=== PATIENT | male | born 1990 | race Caucasian/White ===

== ENCOUNTER 2016-11-16 19:32 | Inpatient (IN) | payer BC, OTHER ==
[~2016-11-16] VITALS: Ht 188 cm; Wt 94.8 kg
[~2016-11-16 19:32] MED LIST: PROPECIA
--- NOTE | 2016-11-16 20:05 | NUR ---
Dr. Ayala at bedside for MSE
[2016-11-16] MEDS ORDERED: NITROGLYCERIN OINT 1 GM PACKET TP ONE ×2 (20:30→20:45)
[2016-11-16] MEDS ORDERED: ASPIRIN 81 MG TAB.CHEW PO ONE (20:30)
[2016-11-16 20:37] LABS: BASOPHILS # (AUTO) 0.1 K/uL (0.0-8.0); BASOPHILS % (AUTO) 0.8 % (0.0-2.0); EOSINOPHILS # (AUTO) 0.5 K/uL (0.0-0.7); EOSINOPHILS % (AUTO) 4.6 % (0.0-7.0); HEMATOCRIT 48.7 % (40-50); HEMOGLOBIN 16.1 G/DL (14.0-18.0); LYMPHOCYTES # (AUTO) 2.7 K/UL (0.8-4.8); LYMPHOCYTES % (AUTO) 24.8 % (20.5-51.5); MEAN CORPUSCULAR HEMOGLOBIN 28.6 UUG (27.0-31.0); MEAN CORPUSCULAR HGB CONC 33 g/dL (32.0-37.0); MEAN CORPUSCULAR VOLUME 86.1 FL (82.0-92.0); MONOCYTES % (AUTO) 9.3 % (0.0-11.0); NEUTROPHILS # (AUTO) 6.5 K/UL (1.8-8.9); NEUTROPHILS % (AUTO) 60.5 % (38.5-71.5); PLATELET COUNT (AUTO) 226 K/UL (150-450); RED BLOOD CELL COUNT(AUTO) 5.65 MIL/UL (4.7-6.1); WHITE BLOOD COUNT (AUTO) 10.8 K/UL (4.0-11.2)
[2016-11-16] MEDS ORDERED: ASPIRIN 81 MG TAB.CHEW ONE (20:45)
--- NOTE | 2016-11-16 20:50 | NUR ---
Nitro paste held due to blood pressure and pt now chest pain free.
[2016-11-16 21:26] LABS: CREATININE 1.1 mg/dL (0.6-1.3); POTASSIUM 4.1 mmol/L (3.5-5.1)
[2016-11-16 21:38] LABS: BILIRUBIN,DIRECT 0.1 mg/dL (0.0-0.2); BILIRUBIN,TOTAL 0.8 mg/dL (0.2-1.0)
--- NOTE | 2016-11-16 21:58 | NUR ---
pt ambulated to br with steady gait, pt remains pain free at this time
--- NOTE | 2016-11-16 23:07 | NUR ---
Repeat troponin drawn and sent. Pt remains pain free, denies any sob. NSR on the monitor.
--- NOTE | 2016-11-16 23:42 | NUR ---
Second troponin resulted <0.017, redraw done to check validity of results. Dr. Jamie horne.
--- NOTE | 2016-11-16 23:44 | NUR ---
Dr. Ayala speaking with Dr. Peraza ([facility] aging department supervisor satellite installation technician)
--- NOTE | 2016-11-16 23:50 | NUR ---
[facility] aye paged for Dr. Ayala for possible admission
--- NOTE | 2016-11-17 00:18 | NUR ---
Dr. Ayala spoke with Hamzah Schwartz for admission
--- NOTE | 2016-11-17 00:23 | NUR ---
Report called to SHANNA Rodrigues. Preparing to transfer pt to the floor.
--- NOTE | 2016-11-17 00:40 | NUR ---
nsg: pt received a/o x 4, fr er via wc with dx of chest pain. denies chest pain at this time. v/s stable. tele,SR. ambulatory. mom at the bedside.
[2016-11-17] MEDS ORDERED: ONDANSETRON 4 MG/2 ML VIAL IV PRN (00:45)
[2016-11-17] MEDS ORDERED: MORPHINE SULFATE 2 MG/1 ML DISP.SYRIN IV PRN (00:45)
[2016-11-17] MEDS ORDERED: MAGNESIUM HYDROXIDE 30 ML LIQUID UDC PO PRN (00:45)
[2016-11-17] MEDS ORDERED: Z GUARD REMEDY PASTE 57 GM TUBE TOP PRN (00:45)
[2016-11-17] MEDS ORDERED: ACETAMINOPHEN 325 MG TABLET PO PRN (00:45)
[2016-11-17] MEDS ORDERED: HYDROCODONE/APAP 5-325MG TABLET PO PRN (00:45)
[2016-11-17 02:08] VITALS: BP 109/59
--- NOTE | 2016-11-17 05:36 | NUR ---
NSG: PT COMFORTABLE IN BED, DENIES CHEST PAIN. TELE, SB WITH HR 57. CONT TO MONITOR.
[2016-11-17 06:12] VITALS: BP 92/53
[2016-11-17 07:00] LABS: BASOPHILS # (AUTO) 0.1 K/uL (0.0-8.0); BASOPHILS % (AUTO) 0.9 % (0.0-2.0); EOSINOPHILS # (AUTO) 0.5 K/uL (0.0-0.7); EOSINOPHILS % (AUTO) 5.1 % (0.0-7.0); HEMATOCRIT 47.5 % (40-50); LYMPHOCYTES # (AUTO) 1.8 K/UL (0.8-4.8); LYMPHOCYTES % (AUTO) 19.6 % (20.5-51.5); MEAN CORPUSCULAR HEMOGLOBIN 29.4 UUG (27.0-31.0); MEAN CORPUSCULAR HGB CONC 34 g/dL (32.0-37.0); MEAN CORPUSCULAR VOLUME 87.5 FL (82.0-92.0); MONOCYTES # (AUTO) 0.9 K/UL (0.1-1.30); MONOCYTES % (AUTO) 9.9 % (0.0-11.0); NEUTROPHILS # (AUTO) 5.9 K/UL (1.8-8.9); NEUTROPHILS % (AUTO) 64.5 % (38.5-71.5); PLATELET COUNT (AUTO) 210 K/UL (150-450); RED BLOOD CELL COUNT(AUTO) 5.43 MIL/UL (4.7-6.1); WHITE BLOOD COUNT (AUTO) 9.2 K/UL (4.0-11.2)
[2016-11-17 07:14] LABS: THYROID STIMULATING HORMONE 2.124 mIU/mL (0.358-3.740)
[2016-11-17 07:29] LABS: CREATININE 0.9 mg/dL (0.6-1.3); MAGNESIUM 2.1 mg/dL (1.8-2.4); PHOSPHOROUS 4.2 mg/dL (2.5-4.9); POTASSIUM 4.1 mmol/L (3.5-5.1)
--- NOTE | 2016-11-17 08:30 | NUR ---
RESTING COMFORTABLY WITH EYES CLOSED AROUSES EASILY ALERT ORIENTED AND VERBALLY RESPONSIVE WHEN AWAKE DENIES CHEST PAIN AT THIS TIME.REMAINS ON TELEMETRY MONITORING ORDERED AND HE IS SINUS WITH NO ECTOPY AT THIS TIME.MADE COMFORTABLE AND WILL OBSERVE.
[2016-11-17] MEDS ORDERED: ASPIRIN 81 MG TAB.CHEW PO SCH (09:00)
[2016-11-17 11:47] VITALS: BP 113/65
--- NOTE | 2016-11-17 12:18 | NUR ---
ECHO COMPLETED AT THE BEDSIDE AND EF IS 55%.PATIENT INSTRUCTED THAT HE NEEDED TO PROVIDE SOME URINE SPECIMEN NEXT TIME HE VOIDS, URINE CUP PROVIDED AND HE EXPRESSED UNDERSTANDING.
[2016-11-17 16:13] VITALS: BP 111/68
--- NOTE | 2016-11-17 17:41 | NUR ---
PATIENT SEEN AND EXAMINED BY DR NIELSEN FIELD FOREMAN WITH NO NEW ORDERS AT THIS TIME.PATIENT STATED THAT THE DOCTOR TOLD HIM THAT HE COULD LEAVE SO I WILL PAGE THE EPIC STEEL ERECTOR ASSIGNED TO HIM.
--- NOTE | 2016-11-17 17:54 | NUR ---
SPOKE WITH ELICEO GARLAND AND NOTIFIED HER THAT THE TABLET TESTER HAS CLEARED PATIENT AND HE WAS EAGER TO GO HOME AND SHE STATED THAT SHE WILL DO THE DISCHARGE AG PATIENT AWARE AND STATED THAT HE HAS HIS OWN CAR IN THE PARKING LOT AND WILL DRIVE HIMSELF HOME.
[2016-11-17] MEDS ORDERED: ACET325T53 PO (17:58)
[2016-11-17 18:17] LABS: *BILIRUBIN,URIN NEGATIVE (NEGATIVE); *BLOOD, URINE NEGATIVE (NEGATIVE); *CLARITY,URINE CLEAR (CLEAR); *COLOR,URINE YELLOW (YELLOW); *KETONES,URINE NEGATIVE (NEGATIVE); *PROTEIN,URINE NEGATIVE (NEGATIVE); *UROBILINOGEN,URINE 0.2 E.U./dl (NORMAL); LEUKOCYTE ESTERASE ,URINE NEGATIVE (NEGATIVE); NITRITE, URINE NEGATIVE (NEGATIVE); UGLUCOSE NEGATIVE (NEGATIVE)
--- NOTE | 2016-11-17 18:30 | NUR ---
PATIENT DISCHARGED [place] AND NAME BAND REMOVED PATIENT INSTRUCTED TO CALL FOR A FOLLOW UP APPOINTMENT WITH HIS FREIGHT FORWARDER WITHIN THE NEXT ONE TO TWO WEEKS AND HE EXPRESSED UNDERSTANDING.PATIENT DISCHARGED WITH ALL OF HIS PERSONAL BELONGINGS.
[2016-11-17 18:41] LABS: MUCUS,URINE FEW /LPF (0-FEW); WBC,URINE 0-3 /HPF (0-3)
== END 2016-11-17 18:30 | disposition home or self-care (01) | DRG 880 ==
LOC: ER 19:33 → TELE 11-17 00:30 → MED 11-17 17:30
PROVIDERS: ADMIT Contractor; ATTEND Nurse Practitioner Acute Care
DX: F41.9 Anxiety disorder, unspecified (principal); Z85.72 Personal history of non-Hodgkin lymphomas; M41.9 Scoliosis, unspecified; Z82.49 Family history of ischemic heart disease and other diseases of the circulatory system; Z92.21 Personal history of antineoplastic chemotherapy; Z79.82 Long term (current) use of aspirin
CPT/HCPCS: 36415; 70030-TC; 71010; 83735; 84100; 84443; 85025; 85730; 93005; 93307; A4663

== ENCOUNTER 2018-08-29 09:52 | Emergency (ER) | payer BC ==
[~2018-08-29] VITALS: Ht 188 cm; Wt 98.0 kg
[~2018-08-29 09:52] MED LIST changes: +ACET325T53 PO; -PROPECIA
--- NOTE | 2018-08-29 10:01 | NUR ---
in room 2a, patient c/o right arm/shoulder pain with restricted arm movement. darlin claimed he fell from chair yesterday.
--- NOTE | 2018-08-29 11:29 | NUR ---
xrays right elbow done at the bedside.
[2018-08-29 11:37] VITALS: BP 124/69
== END 2018-08-29 11:39 | disposition home or self-care (01) ==
LOC: ER 09:52
DX: S52.124A Nondisplaced fracture of head of right radius, initial encounter for closed fracture (principal); Z79.899 Other long term (current) drug therapy; W05.1XXA Fall from non-moving nonmotorized scooter, initial encounter; Y93.89 Activity, other specified; Y92.89 Other specified places as the place of occurrence of the external cause; Y99.8 Other external cause status
CPT/HCPCS: 73080; A4663

== ENCOUNTER 2019-03-17 16:43 | Emergency (ER) | payer BC ==
[~2019-03-17] VITALS: Ht 188 cm; Wt 95.3 kg
[2019-03-17] MEDS ORDERED: ACETAMINOPHEN 325 MG TABLET PO ONE (17:00)
[2019-03-17] MEDS ORDERED: ACETAMINOPHEN ES 500 MG TABLET ONE (17:03)
[2019-03-17] MEDS ORDERED: PENICILLIN G BENZATHINE 2.4 MMU/4 ML DISP.SYRIN IM ONE ×2 (17:06→17:15)
--- NOTE | 2019-03-17 17:12 | NUR ---
Patient discharged to home in stable conditon. Written and verbal after care instructions given. Patient verbalizes understanding of instructions. Patient ambulated with stable gait.
[2019-03-17 17:18] VITALS: BP 120/50
== END 2019-03-17 17:18 | disposition home or self-care (01) ==
LOC: ER 16:43
DX: J02.8 Acute pharyngitis due to other specified organisms (principal); B96.89 Other specified bacterial agents as the cause of diseases classified elsewhere; Z91.048 Other nonmedicinal substance allergy status; Z79.899 Other long term (current) drug therapy
CPT/HCPCS: A4663; A9150